=== PATIENT | male | born 1945 | race Two or more races ===

== ENCOUNTER 2021-12-09 21:43 | Inpatient (IN) | payer MEDICARE, MEDICAID ==
[~2021-12-09] VITALS: Ht 165.1 cm; Wt 72.1 kg
[2021-12-09] MEDS ORDERED: SODIUM CHLORIDE 0.9% 1,000 ML IV ONE (22:15)
[2021-12-10 00:43] LABS: CHLORIDE 101 mEq/L (98-107); HEMATOCRIT. 39.6 % (42.0-52.0); HEMOGLOBIN. 12.5 g/dL (14.0-18.0); MEAN CORPUSCULAR HEMOGLOBIN 25.7 pg (28.0-32.0); MEAN CORPUSCULAR VOLUME 81.1 fL (80.0-94.0); MEAN PLATELET VOLUME 9.5 fl (7.4-10.4); PLATELET 252 x1000/uL (130-400); RED BLOOD CELL COUNT 4.88 mill/uL (4.7-6.1); RED CELL DISTRIBUTION WIDTH 17.7 % (11.6-14.6)
[2021-12-10 00:55] LABS: ETHANOL BLOOD < 10 mg/dL
[2021-12-10 01:22] LABS: INR 1.1; PROTHROMBIN TIME 12.2 sec (9.6-11.0)
[2021-12-10 01:33] LABS: PLATELET ESTIMATE NORMAL
[2021-12-10] MEDS ORDERED: SODIUM CHLORIDE 0.9% 1,000 ML IV ONE (02:00)
[2021-12-10] MEDS ORDERED: CEFTRIAXONE 1 G PREMIX 50 ML IV ONE (02:00)
[2021-12-10] MEDS ORDERED: POTASSIUM CHLORIDE 20MEQ TABLET SR PO ONE (02:00)
[2021-12-10] MEDS ORDERED: CLONIDINE 0.1MG TABLET PO PRN (04:30)
[2021-12-10] MEDS ORDERED: MORPHINE SULFATE 2 MG/ML CPJ (NOT FOR IM USE) IV PRN (04:30)
[2021-12-10] MEDS ORDERED: CEFTRIAXONE 1 G PREMIX 50 ML IV SCH (04:30)
[2021-12-10] MEDS ORDERED: MAGNESIUM/ALUMINUM HYDROXIDE/SIMETHICONE 30ML UDC PO PRN (04:30)
[2021-12-10] MEDS ORDERED: DOCUSATE SODIUM 100MG CAPSULE PO PRN (04:30)
[2021-12-10] MEDS ORDERED: ACETAMINOPHEN 325MG TABLET PO PRN (04:30)
[2021-12-10] MEDS ORDERED: IPRATROPIUM/ALBUTEROL 0.5-3(2.5)MG/3ML NEB HHN PRN (04:30)
[2021-12-10] MEDS ORDERED: ACETAMINOPHEN 650MG SUPP PR PRN (04:30)
[2021-12-10] MEDS: SODIUM CHLORIDE 0.9% 1,000 ML IV SCH ×2 (05:07→08:00)
[2021-12-10] MEDS ORDERED: NALOXONE HCL 0.4MG/ML VIAL IV PRN (08:30)
[2021-12-10] MEDS ORDERED: POTASSIUM CHLORIDE 20MEQ TABLET SR PO NR (10:30)
[2021-12-10] MEDS: ENOXAPARIN 40MG/0.4ML SYR SUBCUT SCH (11:01)
[2021-12-10 14:00] VITALS: BP 121/77
[2021-12-10 15:24] VITALS: BP 121/77
[2021-12-10 16:00] VITALS: BP 113/79
[2021-12-10 16:44] LABS: BASOPHILS % 0.4 % (0.0-2.0); EOSINOPHILS % 0.5 % (0.0-5.0); HEMATOCRIT. 38.1 % (42.0-52.0); HEMOGLOBIN. 12.2 g/dL (14.0-18.0); LYMPHOCYTES % 8.3 % (20.0-50.0); MEAN CORPUSCULAR VOLUME 81.1 fL (80.0-94.0); MEAN PLATELET VOLUME 9.9 fl (7.4-10.4); MONOCYTES % 12.1 % (2.0-8.0); NEUTROPHILS % 78.7 % (40.0-76.0); PLATELET 247 x1000/uL (130-400); RED CELL DISTRIBUTION WIDTH 17.6 % (11.6-14.6)
[2021-12-10 17:17] LABS: CHLORIDE 106 mEq/L (98-107)
[2021-12-10 17:32] LABS: CREATINE KINASE 201 IU/L (39-308); HDL CHOLESTEROL 24 mg/dL (40-59); LDL CHOLESTEROL 151 mg/dL (5-100)
[2021-12-10 18:00] VITALS: BP 123/62
[2021-12-10 20:00] VITALS: BP 113/79
[2021-12-10 22:00] VITALS: BP 114/80
[2021-12-11] VITALS (13 sets, daily range): BP systolic 91–128; BP diastolic 62–88
[2021-12-11 01:27] LABS: *AMPHETAMINES SCREEN URINE NEGATIVE (NEGATIVE); *BARBITURATES SCREEN URINE NEGATIVE (NEGATIVE); *BENZODIAZEPINES SCREEN URINE NEGATIVE (NEGATIVE); *COCAINE SCREEN URINE NEGATIVE (NEGATIVE); CANNABINOID URINE SCREEN NEGATIVE (NEGATIVE); METHADONE URINE SCREEN NEGATIVE (NEGATIVE); OPIATES URINE SCREEN NEGATIVE (NEGATIVE); PHENCYCLIDINE URINE SCREEN NEGATIVE (NEGATIVE)
[2021-12-11] MEDS: CEFTRIAXONE 1,000 MG in DEXTROSE 5% WATER 50 ML IV SCH (02:51)
[2021-12-11] MEDS: SODIUM CHLORIDE 0.9% 1,000 ML IV SCH ×2 (04:21→17:29)
[2021-12-11 08:02] LABS: BASOPHILS % 0.5 % (0.0-2.0); EOSINOPHILS % 0.5 % (0.0-5.0); HEMATOCRIT. 33.8 % (42.0-52.0); HEMOGLOBIN. 11.1 g/dL (14.0-18.0); LYMPHOCYTES % 8.2 % (20.0-50.0); MEAN CORPUSCULAR HEMOGLOBIN 26.1 pg (28.0-32.0); MEAN CORPUSCULAR VOLUME 79.5 fL (80.0-94.0); MONOCYTES % 12.5 % (2.0-8.0); NEUTROPHILS % 78.3 % (40.0-76.0); PLATELET 231 x1000/uL (130-400); RED BLOOD CELL COUNT 4.25 mill/uL (4.7-6.1); RED CELL DISTRIBUTION WIDTH 17.8 % (11.6-14.6)
[2021-12-11 08:44] LABS: CHLORIDE 106 mEq/L (98-107)
[2021-12-11 08:52] LABS: HEPATITIS B SURFACE ANTIGEN NEGATIVE
[2021-12-11] MEDS ORDERED: POTASSIUM CHLORIDE 20MEQ TABLET SR PO SCH (09:00)
[2021-12-11] MEDS: ENOXAPARIN 40MG/0.4ML SYR SUBCUT SCH (09:04)
[2021-12-11] MEDS ORDERED: DEXTROSE 50% WATER 50ML SYRINGE IV NR (12:15)
[2021-12-11] MEDS: ATORVASTATIN CALCIUM 20MG TABLET PO SCH (20:20)
[2021-12-11 23:04] LABS: CLARITY URINE CLEAR (CLEAR); COLOR URINE YELLOW (YELLOW); KETONES URINE 1+ (NEGATIVE); LEUKOCYTE ESTERASE URINE NEGATIVE (NEGATIVE); NITRITE URINE NEGATIVE (NEGATIVE); OCCULT BLOOD URINE NEGATIVE (NEGATIVE); PROTEIN URINE TRACE (NEGATIVE); SPECIFIC GRAVITY URINE 1.014 (1.005-1.030); UROBILINOGEN URINE 0.2 E.U./dL (0.2-1.0)
[2021-12-12] VITALS (12 sets, daily range): BP systolic 99–142; BP diastolic 40–90
[2021-12-12] MEDS: CEFTRIAXONE 1,000 MG in DEXTROSE 5% WATER 50 ML IV SCH (02:21)
[2021-12-12] MEDS: SODIUM CHLORIDE 0.9% 1,000 ML IV SCH (02:22)
[2021-12-12 06:52] LABS: HEMATOCRIT. 33.9 % (42.0-52.0); HEMOGLOBIN. 11.2 g/dL (14.0-18.0); MEAN CORPUSCULAR HEMOGLOBIN 26.3 pg (28.0-32.0); MEAN CORPUSCULAR VOLUME 79.8 fL (80.0-94.0); MEAN PLATELET VOLUME 9.6 fl (7.4-10.4); PLATELET 221 x1000/uL (130-400); RED BLOOD CELL COUNT 4.25 mill/uL (4.7-6.1); RED CELL DISTRIBUTION WIDTH 17.7 % (11.6-14.6)
[2021-12-12 07:35] LABS: CHLORIDE 108 mEq/L (98-107)
[2021-12-12] MEDS: MAGNESIUM OXIDE 400MG TABLET PO SCH (08:29)
[2021-12-12] MEDS: DEXT 5%/0.45% NACL 1000ML 1,000 ML IV SCH (08:29)
[2021-12-12] MEDS: ENOXAPARIN 40MG/0.4ML SYR SUBCUT SCH ×2 (08:30→08:40)
[2021-12-12] MEDS ORDERED: POTASSIUM CHLORIDE 20MEQ TABLET SR PO SCH (08:30)
[2021-12-12] MEDS ORDERED: DEXTROSE 50% WATER 50ML SYRINGE IV SCH (09:00)
[2021-12-12 14:01] LABS: PLATELET ESTIMATE NORMAL
[2021-12-12] MEDS: ATORVASTATIN CALCIUM 20MG TABLET PO SCH (21:00)
[2021-12-12] MEDS: SODIUM CHLORIDE 0.45% 1,000 ML IV SCH (23:44)
[2021-12-13] VITALS (16 sets, daily range): BP systolic 103–135; BP diastolic 68–99
[2021-12-13] MEDS: CEFTRIAXONE 1,000 MG in DEXTROSE 5% WATER 50 ML IV SCH (02:01)
[2021-12-13] MEDS ORDERED: BLOOD SUGAR DIAGNOSTIC STRIP TEST SCH (03:00)
[2021-12-13] MEDS ORDERED: DEXTROSE 50% WATER 50ML SYRINGE IV NR ×2 (03:15→18:00)
[2021-12-13] MEDS: DEXT 5%/0.45% NACL 1000ML 1,000 ML IV SCH (05:00)
[2021-12-13] MEDS: MAGNESIUM OXIDE 400MG TABLET PO SCH (08:02)
[2021-12-13] MEDS: ENOXAPARIN 40MG/0.4ML SYR SUBCUT SCH (08:03)
[2021-12-13] MEDS: SODIUM CHLORIDE 0.45% 1,000 ML IV SCH (12:33)
[2021-12-13 12:47] LABS: BASOPHILS % 0.3 % (0.0-2.0); EOSINOPHILS % 0.3 % (0.0-5.0); HEMATOCRIT. 36.5 % (42.0-52.0); HEMOGLOBIN. 11.7 g/dL (14.0-18.0); MEAN CORPUSCULAR HEMOGLOBIN 25.7 pg (28.0-32.0); MEAN CORPUSCULAR VOLUME 80.1 fL (80.0-94.0); MEAN PLATELET VOLUME 8.7 fl (7.4-10.4); NEUTROPHILS % 82.4 % (40.0-76.0); PLATELET 203 x1000/uL (130-400); RED BLOOD CELL COUNT 4.56 mill/uL (4.7-6.1); RED CELL DISTRIBUTION WIDTH 18.4 % (11.6-14.6)
[2021-12-13 13:04] LABS: CHLORIDE 106 mEq/L (98-107)
[2021-12-13 13:14] LABS: T4 FREE 1.28 ng/dL (0.76-1.46)
[2021-12-13] MEDS ORDERED: POTASSIUM CHLORIDE 20MEQ TABLET SR PO NR (13:30)
[2021-12-13] MEDS: ONDANSETRON HCL 4MG/2ML INJ IV PRN (18:05)
[2021-12-13] MEDS ORDERED: DEXTROSE 50% WATER 50ML SYRINGE IV PRN (19:15)
[2021-12-13] MEDS: BLOOD SUGAR DIAGNOSTIC STRIP TEST SCH ×2 (21:01→23:53)
[2021-12-13] MEDS: ATORVASTATIN CALCIUM 20MG TABLET PO SCH (21:15)
[2021-12-14] VITALS (12 sets, daily range): BP systolic 91–143; BP diastolic 62–101
[2021-12-14] MEDS: CEFTRIAXONE 1,000 MG in DEXTROSE 5% WATER 50 ML IV SCH (01:14)
[2021-12-14] MEDS: SODIUM CHLORIDE 0.45% 1,000 ML IV SCH (01:15)
[2021-12-14] MEDS: BLOOD SUGAR DIAGNOSTIC STRIP TEST SCH ×3 (04:19→17:15)
[2021-12-14 06:25] LABS: BASOPHILS % 0.2 % (0.0-2.0); EOSINOPHILS % 0.4 % (0.0-5.0); HEMATOCRIT. 34.3 % (42.0-52.0); HEMOGLOBIN. 11.3 g/dL (14.0-18.0); LYMPHOCYTES % 7.3 % (20.0-50.0); MEAN CORPUSCULAR HEMOGLOBIN 26.3 pg (28.0-32.0); MEAN CORPUSCULAR VOLUME 80.1 fL (80.0-94.0); MEAN PLATELET VOLUME 9.3 fl (7.4-10.4); NEUTROPHILS % 85.1 % (40.0-76.0); PLATELET 218 x1000/uL (130-400); RED BLOOD CELL COUNT 4.28 mill/uL (4.7-6.1); RED CELL DISTRIBUTION WIDTH 18.1 % (11.6-14.6)
[2021-12-14 06:57] LABS: CHLORIDE 108 mEq/L (98-107)
[2021-12-14 07:04] LABS: BETA HYDROXYBUTYRATE 1.2 mMol/L (0.0-0.3); GAMMA GLUTAMYL TRANSPEPTIDASE 145 IU/L (11-50)
[2021-12-14] MEDS: MAGNESIUM OXIDE 400MG TABLET PO SCH (09:00)
[2021-12-14] MEDS: ENOXAPARIN 40MG/0.4ML SYR SUBCUT SCH (09:00)
[2021-12-14] MEDS: GLUCAGON,HUMAN RECOMBINANT 1MG/VIAL IV NR (10:00)
[2021-12-14] MEDS ORDERED: POTASSIUM CHLORIDE 20MEQ TABLET SR PO SCH (11:00)
[2021-12-14] MEDS: DEXT 5%/0.45% NACL 1000ML 1,000 ML IV SCH (13:30)
[2021-12-14] MEDS ORDERED: IOHEXOL-300 100 ML BOTTLE ONE (13:31)
[2021-12-14] MEDS: ACETAMINOPHEN 325MG TABLET PO PRN (20:38)
[2021-12-14] MEDS: ATORVASTATIN CALCIUM 20MG TABLET PO SCH (20:38)
[2021-12-15] VITALS (11 sets, daily range): BP systolic 97–133; BP diastolic 66–95
[2021-12-15] MEDS: CEFTRIAXONE 1,000 MG in DEXTROSE 5% WATER 50 ML IV SCH (02:25)
[2021-12-15] MEDS: DEXT 5%/0.9% NACL KCL 20MEQ/L 1,000 ML IV SCH ×2 (02:25→15:32)
[2021-12-15 08:36] LABS: FOLIC ACID (FOLATE) SERUM 6.2 ng/mL (>5.38)
[2021-12-15] MEDS: BLOOD SUGAR DIAGNOSTIC STRIP TEST SCH ×2 (09:00→17:00)
[2021-12-15 09:06] LABS: C-PEPTIDE 1.2 ng/mL (1.1-4.4)
[2021-12-15] MEDS: ENOXAPARIN 40MG/0.4ML SYR SUBCUT SCH (09:12)
[2021-12-15] MEDS: MAGNESIUM OXIDE 400MG TABLET PO SCH (09:12)
[2021-12-15] MEDS: ONDANSETRON HCL 4MG/2ML INJ IV PRN (09:24)
[2021-12-15] MEDS ORDERED: GADOTERATE MEGLUMINE 5 MMOL/10 ML VIAL IV ONE (18:09)
[2021-12-15] MEDS: ATORVASTATIN CALCIUM 20MG TABLET PO SCH (21:00)
[2021-12-16] VITALS (12 sets, daily range): BP systolic 99–125; BP diastolic 62–87
[2021-12-16 06:29] LABS: HEMATOCRIT. 42.4 % (42.0-52.0); HEMOGLOBIN. 13.6 g/dL (14.0-18.0); MEAN CORPUSCULAR HEMOGLOBIN 25.8 pg (28.0-32.0); MEAN CORPUSCULAR VOLUME 80.9 fL (80.0-94.0); MEAN PLATELET VOLUME 9.2 fl (7.4-10.4); PLATELET 209 x1000/uL (130-400); RED BLOOD CELL COUNT 5.24 mill/uL (4.7-6.1); RED CELL DISTRIBUTION WIDTH 18.8 % (11.6-14.6)
[2021-12-16] MEDS: MAGNESIUM OXIDE 400MG TABLET PO SCH (08:09)
[2021-12-16] MEDS: ENOXAPARIN 40MG/0.4ML SYR SUBCUT SCH (08:24)
[2021-12-16] MEDS: ONDANSETRON HCL 4MG/2ML INJ IV PRN (08:31)
[2021-12-16] MEDS: BLOOD SUGAR DIAGNOSTIC STRIP TEST SCH ×2 (08:31→16:40)
[2021-12-16] MEDS: METOPROLOL TARTRATE 25MG TABLET PO SCH ×2 (10:30→21:00)
[2021-12-16] MEDS: DEXT 5%/0.9% NACL KCL 20MEQ/L 1,000 ML IV SCH (10:55)
[2021-12-16 11:00] LABS: CHLORIDE 108 mEq/L (98-107)
[2021-12-16 11:17] LABS: PHOSPHORUS 2.1 mg/dL (2.5-4.9)
[2021-12-16 13:10] LABS: C-PEPTIDE 1.4 ng/mL (1.1-4.4); INSULIN 2.8 uIU/mL (2.6-24.9)
[2021-12-16] MEDS ORDERED: FUROSEMIDE 40MG/4ML VIAL IVP NR (14:45)
[2021-12-16] MEDS: PIPERACILLIN/TAZOBACTAM 3.375 G in DEXTROSE 5% WATER 50 ML IV SCH ×2 (16:29→22:45)
[2021-12-16 18:19] LABS: PLATELET ESTIMATE NORMAL
[2021-12-16] MEDS: ATORVASTATIN CALCIUM 20MG TABLET PO SCH (21:00)
[2021-12-16] MEDS: GUAIFENESIN 600MG ER TABLET PO SCH (21:00)
[2021-12-16] MEDS ORDERED: POTASSIUM PHOS,M-BASIC-D-BASIC 10 MMOL in DEXT 5% WATER 246.6667 ML IV NR (22:00)
[2021-12-17] MEDS: DEXT 5%/0.9% NACL KCL 20MEQ/L 1,000 ML IV SCH ×2 (01:14→17:27)
[2021-12-17] MEDS: PIPERACILLIN/TAZOBACTAM 3.375 G in DEXTROSE 5% WATER 50 ML IV SCH ×3 (05:22→21:53)
[2021-12-17 06:43] LABS: HEMATOCRIT. 32.2 % (42.0-52.0); HEMOGLOBIN. 10.9 g/dL (14.0-18.0); MEAN CORPUSCULAR HEMOGLOBIN 26.9 pg (28.0-32.0); MEAN CORPUSCULAR VOLUME 79.5 fL (80.0-94.0); MEAN PLATELET VOLUME 9.2 fl (7.4-10.4); PLATELET 160 x1000/uL (130-400); RED BLOOD CELL COUNT 4.04 mill/uL (4.7-6.1); RED CELL DISTRIBUTION WIDTH 18.3 % (11.6-14.6)
[2021-12-17 07:13] LABS: CHLORIDE 108 mEq/L (98-107); PHOSPHORUS 2.5 mg/dL (2.5-4.9)
[2021-12-17 08:00] VITALS: BP 104/72
[2021-12-17] MEDS: ENOXAPARIN 40MG/0.4ML SYR SUBCUT SCH (09:00)
[2021-12-17] MEDS: GUAIFENESIN 600MG ER TABLET PO SCH ×2 (09:00→21:54)
[2021-12-17] MEDS: METOPROLOL TARTRATE 25MG TABLET PO SCH ×2 (09:00→21:52)
[2021-12-17] MEDS: MAGNESIUM OXIDE 400MG TABLET PO SCH (09:00)
[2021-12-17] MEDS: BLOOD SUGAR DIAGNOSTIC STRIP TEST SCH ×2 (09:37→17:32)
[2021-12-17] MEDS ORDERED: MAGNESIUM 1 G PREMIX 100 ML IV NR (10:30)
[2021-12-17 12:00] VITALS: BP 100/72
[2021-12-17 13:07] LABS: PRO INSULIN 1.6 pmol/L (0.0-10.0)
[2021-12-17 13:07] LABS: PRO INSULIN 3.3 pmol/L (0.0-10.0)
[2021-12-17 16:00] VITALS: BP 116/79
[2021-12-17 17:37] LABS: PLATELET ESTIMATE NORMAL
[2021-12-17 20:00] VITALS: BP 119/82
[2021-12-17] MEDS: ATORVASTATIN CALCIUM 20MG TABLET PO SCH (21:51)
[2021-12-18] VITALS: BP 121/89
[2021-12-18 04:00] VITALS: BP 123/78
[2021-12-18] MEDS: PIPERACILLIN/TAZOBACTAM 3.375 G in DEXTROSE 5% WATER 50 ML IV SCH ×3 (05:20→21:51)
[2021-12-18 08:01] VITALS: BP 107/70
[2021-12-18] MEDS: ENOXAPARIN 40MG/0.4ML SYR SUBCUT SCH (09:00)
[2021-12-18] MEDS: BLOOD SUGAR DIAGNOSTIC STRIP TEST SCH ×2 (09:00→17:48)
[2021-12-18] MEDS: METOPROLOL TARTRATE 25MG TABLET PO SCH ×3 (09:00→21:49)
[2021-12-18] MEDS: GUAIFENESIN 600MG ER TABLET PO SCH ×3 (09:00→21:52)
[2021-12-18] MEDS: MAGNESIUM OXIDE 400MG TABLET PO SCH (09:00)
[2021-12-18] MEDS: DEXT 5%/0.9% NACL KCL 20MEQ/L 1,000 ML IV SCH (10:23)
[2021-12-18] MEDS: PANTOPRAZOLE SODIUM 40 MG/VIAL IV SCH ×2 (11:00→21:48)
[2021-12-18 12:00] VITALS: BP 112/64
[2021-12-18] MEDS ORDERED: HALOPERIDOL 5MG TABLET PO PRN (12:45)
[2021-12-18 16:00] VITALS: BP 132/75
[2021-12-18 18:12] LABS: BASOPHILS % 0.7 % (0.0-2.0); EOSINOPHILS % 0.2 % (0.0-5.0); HEMATOCRIT. 31.4 % (42.0-52.0); HEMOGLOBIN. 10.3 g/dL (14.0-18.0); LYMPHOCYTES % 7.6 % (20.0-50.0); MEAN CORPUSCULAR HEMOGLOBIN 26.4 pg (28.0-32.0); MEAN CORPUSCULAR VOLUME 80.5 fL (80.0-94.0); MEAN PLATELET VOLUME 9.1 fl (7.4-10.4); MONOCYTES % 10.5 % (2.0-8.0); PLATELET 152 x1000/uL (130-400); RED CELL DISTRIBUTION WIDTH 17.9 % (11.6-14.6)
[2021-12-18] MEDS: DEXTROSE 10% WATER 500 ML IV SCH (18:40)
[2021-12-18 20:00] VITALS: BP 119/85
[2021-12-18] MEDS: ATORVASTATIN CALCIUM 20MG TABLET PO SCH ×2 (21:00→21:51)
[2021-12-19] VITALS: BP 125/73
[2021-12-19 04:00] VITALS: BP 130/87
[2021-12-19] MEDS: PIPERACILLIN/TAZOBACTAM 3.375 G in DEXTROSE 5% WATER 50 ML IV SCH ×3 (06:17→22:32)
[2021-12-19] MEDS: DEXTROSE 10% WATER 500 ML IV SCH (06:17)
[2021-12-19 08:00] VITALS: BP 115/75
[2021-12-19] MEDS: GUAIFENESIN 600MG ER TABLET PO SCH ×2 (09:00→22:32)
[2021-12-19] MEDS: METOPROLOL TARTRATE 25MG TABLET PO SCH ×2 (09:00→22:33)
[2021-12-19] MEDS: PANTOPRAZOLE SODIUM 40 MG/VIAL IV SCH ×2 (09:00→22:32)
[2021-12-19] MEDS: MAGNESIUM OXIDE 400MG TABLET PO SCH (09:00)
[2021-12-19] MEDS: ENOXAPARIN 40MG/0.4ML SYR SUBCUT SCH (09:00)
[2021-12-19] MEDS: BLOOD SUGAR DIAGNOSTIC STRIP TEST SCH ×2 (09:00→17:00)
[2021-12-19 09:58] LABS: CHLORIDE 107 mEq/L (98-107)
[2021-12-19 10:00] LABS: BASOPHILS % 0.5 % (0.0-2.0); EOSINOPHILS % 0.2 % (0.0-5.0); HEMATOCRIT. 31.5 % (42.0-52.0); HEMOGLOBIN. 10.5 g/dL (14.0-18.0); INR 1.2; LYMPHOCYTES % 11.4 % (20.0-50.0); MEAN CORPUSCULAR HEMOGLOBIN 26.7 pg (28.0-32.0); MEAN CORPUSCULAR VOLUME 80.1 fL (80.0-94.0); MEAN PLATELET VOLUME 8.7 fl (7.4-10.4); MONOCYTES % 10.2 % (2.0-8.0); NEUTROPHILS % 77.7 % (40.0-76.0); PLATELET 160 x1000/uL (130-400); PROTHROMBIN TIME 12.8 sec (9.6-11.0); RED BLOOD CELL COUNT 3.93 mill/uL (4.7-6.1); RED CELL DISTRIBUTION WIDTH 18.6 % (11.6-14.6)
[2021-12-19 12:00] VITALS: BP 118/80
[2021-12-19] MEDS ORDERED: POTASSIUM CHLORIDE INJ 40 MEQ in DEXT 5% WATER 250 ML IV NR ×2 (13:00→15:00)
[2021-12-19 13:09] LABS: PRO INSULIN 2.1 pmol/L (0.0-10.0)
[2021-12-19] MEDS ORDERED: DEXTROSE 50% WATER 50ML SYRINGE IV SCH (14:30)
[2021-12-19 16:00] VITALS: BP 97/73
[2021-12-19] MEDS: ATORVASTATIN CALCIUM 20MG TABLET PO SCH (22:32)
[2021-12-19] MEDS: FAT EMULSIONS 500 ML IV SCH (22:34)
[2021-12-19] MEDS: TOTAL PARENTERAL NUTRITION 1,800 ML IV SCH (22:36)
[2021-12-20] VITALS: BP 114/79
[2021-12-20 04:00] VITALS: BP 106/71
[2021-12-20] MEDS: PIPERACILLIN/TAZOBACTAM 3.375 G in DEXTROSE 5% WATER 50 ML IV SCH ×3 (05:49→22:49)
[2021-12-20 08:00] VITALS: BP 108/78
[2021-12-20] MEDS: MAGNESIUM OXIDE 400MG TABLET PO SCH (09:00)
[2021-12-20] MEDS: PANTOPRAZOLE SODIUM 40 MG/VIAL IV SCH ×2 (09:00→21:39)
[2021-12-20] MEDS: GUAIFENESIN 600MG ER TABLET PO SCH ×2 (09:00→21:39)
[2021-12-20] MEDS: BLOOD SUGAR DIAGNOSTIC STRIP TEST SCH ×2 (09:00→17:00)
[2021-12-20] MEDS: ENOXAPARIN 40MG/0.4ML SYR SUBCUT SCH (09:00)
[2021-12-20] MEDS: METOPROLOL TARTRATE 25MG TABLET PO SCH ×2 (09:00→21:00)
[2021-12-20 10:06] LABS: INSULIN 2.8 uIU/mL (2.6-24.9)
[2021-12-20 10:58] LABS: BASOPHILS % 0.8 % (0.0-2.0); EOSINOPHILS % 1.4 % (0.0-5.0); HEMATOCRIT. 32.1 % (42.0-52.0); HEMOGLOBIN. 10.8 g/dL (14.0-18.0); LYMPHOCYTES % 14.9 % (20.0-50.0); MEAN CORPUSCULAR HEMOGLOBIN 26.9 pg (28.0-32.0); MEAN CORPUSCULAR VOLUME 79.8 fL (80.0-94.0); MEAN PLATELET VOLUME 8.6 fl (7.4-10.4); NEUTROPHILS % 73.9 % (40.0-76.0); PLATELET 147 x1000/uL (130-400); RED BLOOD CELL COUNT 4.02 mill/uL (4.7-6.1); RED CELL DISTRIBUTION WIDTH 17.8 % (11.6-14.6)
[2021-12-20 11:33] LABS: CHLORIDE 106 mEq/L (98-107); PHOSPHORUS 1.6 mg/dL (2.5-4.9)
[2021-12-20 12:00] VITALS: BP 109/79
[2021-12-20] MEDS ORDERED: WATER IV ONE (14:00)
[2021-12-20] MEDS ORDERED: DEXT 5% IV ONE (14:00)
[2021-12-20] MEDS ORDERED: POTASSIUM PHOS M BASIC D BASIC IV ONE (14:00)
[2021-12-20] MEDS ORDERED: NALOXONE HCL 0.4MG/ML VIAL IV PRN (14:15)
[2021-12-20] MEDS: MORPHINE SULFATE 2 MG/ML CPJ (NOT FOR IM USE) IV PRN (14:34)
[2021-12-20 16:00] VITALS: BP 120/84
[2021-12-20 20:00] VITALS: BP 99/74
[2021-12-20] MEDS: ATORVASTATIN CALCIUM 20MG TABLET PO SCH (21:39)
[2021-12-21] VITALS: BP 90/70
[2021-12-21] MEDS: PIPERACILLIN/TAZOBACTAM 3.375 G in DEXTROSE 5% WATER 50 ML IV SCH (05:21)
[2021-12-21] MEDS: TOTAL PARENTERAL NUTRITION 1,800 ML IV SCH (05:27)
[2021-12-21 06:42] LABS: BASOPHILS % 0.3 % (0.0-2.0); EOSINOPHILS % 0.5 % (0.0-5.0); HEMATOCRIT. 32.1 % (42.0-52.0); HEMOGLOBIN. 10.8 g/dL (14.0-18.0); LYMPHOCYTES % 15.8 % (20.0-50.0); MEAN CORPUSCULAR HEMOGLOBIN 26.8 pg (28.0-32.0); MEAN CORPUSCULAR VOLUME 79.4 fL (80.0-94.0); MEAN PLATELET VOLUME 8.9 fl (7.4-10.4); MONOCYTES % 10.4 % (2.0-8.0); PLATELET 155 x1000/uL (130-400); RED BLOOD CELL COUNT 4.04 mill/uL (4.7-6.1); RED CELL DISTRIBUTION WIDTH 17.8 % (11.6-14.6)
[2021-12-21 06:55] LABS: CHLORIDE 103 mEq/L (98-107)
[2021-12-21 07:05] LABS: PHOSPHORUS 1.7 mg/dL (2.5-4.9)
[2021-12-21 08:00] VITALS: BP 99/71
[2021-12-21] MEDS: PANTOPRAZOLE SODIUM 40 MG/VIAL IV SCH ×2 (09:00→20:38)
[2021-12-21] MEDS: BLOOD SUGAR DIAGNOSTIC STRIP TEST SCH ×2 (09:00→20:50)
[2021-12-21] MEDS: GUAIFENESIN 600MG ER TABLET PO SCH ×3 (09:00→20:41)
[2021-12-21] MEDS: MAGNESIUM OXIDE 400MG TABLET PO SCH (09:00)
[2021-12-21] MEDS: ENOXAPARIN 40MG/0.4ML SYR SUBCUT SCH (09:00)
[2021-12-21] MEDS: METOPROLOL TARTRATE 25MG TABLET PO SCH ×2 (09:00→21:00)
[2021-12-21 12:00] VITALS: BP 105/76
[2021-12-21] MEDS ORDERED: POTASSIUM PHOS,M-BASIC-D-BASIC 30 MMOL in SODIUM CHLORIDE 0.9% 500 ML IV SCH (12:00)
[2021-12-21 16:00] VITALS: BP 102/79
[2021-12-21] MEDS: MORPHINE SULFATE 2 MG/ML CPJ (NOT FOR IM USE) IV PRN (16:20)
[2021-12-21 20:00] VITALS: BP 114/83
[2021-12-21] MEDS: ATORVASTATIN CALCIUM 20MG TABLET PO SCH ×2 (20:40→20:41)
[2021-12-21] MEDS ORDERED: PIPERACILLIN/TAZOBACTAM 3.375 G in DEXTROSE 5% WATER 50 ML IV NR (21:00)
[2021-12-22] VITALS: BP 116/85
[2021-12-22 04:00] VITALS: BP 110/81
[2021-12-22 05:23] LABS: HEMATOCRIT. 29.8 % (42.0-52.0); LYMPHOCYTES % 14.5 % (20.0-50.0); MEAN CORPUSCULAR HEMOGLOBIN 26.6 pg (28.0-32.0); MEAN CORPUSCULAR VOLUME 79.3 fL (80.0-94.0); MEAN PLATELET VOLUME 9.1 fl (7.4-10.4); MONOCYTES % 10.4 % (2.0-8.0); NEUTROPHILS % 73.1 % (40.0-76.0); PLATELET 169 x1000/uL (130-400); RED BLOOD CELL COUNT 3.76 mill/uL (4.7-6.1); RED CELL DISTRIBUTION WIDTH 17.6 % (11.6-14.6)
[2021-12-22 05:35] LABS: CHLORIDE 106 mEq/L (98-107)
[2021-12-22 05:40] LABS: PHOSPHORUS 1.6 mg/dL (2.5-4.9)
[2021-12-22] MEDS: TOTAL PARENTERAL NUTRITION 2,000 ML IV SCH (06:57)
[2021-12-22 08:00] VITALS: BP 108/82
[2021-12-22] MEDS: ENOXAPARIN 40MG/0.4ML SYR SUBCUT SCH (08:01)
[2021-12-22] MEDS: METOPROLOL TARTRATE 25MG TABLET PO SCH ×2 (09:00→21:00)
[2021-12-22] MEDS: BLOOD SUGAR DIAGNOSTIC STRIP TEST SCH ×2 (09:09→16:59)
[2021-12-22] MEDS: MAGNESIUM OXIDE 400MG TABLET PO SCH (09:21)
[2021-12-22] MEDS: PANTOPRAZOLE SODIUM 40 MG/VIAL IV SCH ×2 (09:21→21:00)
[2021-12-22] MEDS: GUAIFENESIN 600MG ER TABLET PO SCH ×2 (09:22→21:00)
[2021-12-22] MEDS: POTASSIUM CHLORIDE 20MEQ/PACKET PO NR ×2 (11:50→12:00)
[2021-12-22 12:00] VITALS: BP 113/84
[2021-12-22] MEDS ORDERED: MAGNESIUM 2 G PREMIX 50 ML IV NR (12:00)
[2021-12-22] MEDS ORDERED: POTASSIUM PHOS,M-BASIC-D-BASIC 20 MMOL in SODIUM CHLORIDE 0.9% 250 ML IV NR (13:00)
[2021-12-22 16:00] VITALS: BP 112/85
[2021-12-22 20:00] VITALS: BP 105/72
[2021-12-22] MEDS: FAT EMULSIONS 500 ML IV SCH (20:32)
[2021-12-22] MEDS: ATORVASTATIN CALCIUM 20MG TABLET PO SCH (21:00)
[2021-12-22] MEDS: MIRTAZAPINE 15MG TABLET PO SCH (21:00)
[2021-12-23] VITALS: BP 118/85
[2021-12-23 04:00] VITALS: BP 103/68
[2021-12-23 06:30] LABS: BASOPHILS % 0.7 % (0.0-2.0); EOSINOPHILS % 0.9 % (0.0-5.0); HEMATOCRIT. 28.2 % (42.0-52.0); HEMOGLOBIN. 9.9 g/dL (14.0-18.0); LYMPHOCYTES % 15.4 % (20.0-50.0); MEAN CORPUSCULAR VOLUME 79.6 fL (80.0-94.0); MEAN PLATELET VOLUME 9.3 fl (7.4-10.4); MONOCYTES % 10.1 % (2.0-8.0); NEUTROPHILS % 72.9 % (40.0-76.0); PLATELET 175 x1000/uL (130-400); RED BLOOD CELL COUNT 3.54 mill/uL (4.7-6.1); RED CELL DISTRIBUTION WIDTH 17.9 % (11.6-14.6)
[2021-12-23 06:45] LABS: CHLORIDE 102 mEq/L (98-107)
[2021-12-23 06:51] LABS: PHOSPHORUS 1.3 mg/dL (2.5-4.9)
[2021-12-23 08:00] VITALS: BP 113/79
[2021-12-23] MEDS: GUAIFENESIN 600MG ER TABLET PO SCH ×3 (09:00→21:00)
[2021-12-23] MEDS: METOPROLOL TARTRATE 25MG TABLET PO SCH ×2 (09:00→21:00)
[2021-12-23] MEDS: ENOXAPARIN 40MG/0.4ML SYR SUBCUT SCH (09:00)
[2021-12-23] MEDS: BLOOD SUGAR DIAGNOSTIC STRIP TEST SCH ×2 (09:00→16:26)
[2021-12-23] MEDS: PANTOPRAZOLE SODIUM 40 MG/VIAL IV SCH ×2 (09:33→21:00)
[2021-12-23] MEDS: MAGNESIUM OXIDE 400MG TABLET PO SCH (09:33)
[2021-12-23] MEDS ORDERED: POTASSIUM PHOS,M-BASIC-D-BASIC 20 MMOL in DEXT 5% WATER 243.3333 ML IV ONE (10:00)
[2021-12-23 12:00] VITALS: BP 112/78
[2021-12-23] MEDS ORDERED: DEXTROSE 5% IV ONE (14:00)
[2021-12-23] MEDS ORDERED: POTASSIUM PHOS M BASIC D BASIC IV ONE (14:00)
[2021-12-23] MEDS ORDERED: WATER IV ONE (14:00)
[2021-12-23 15:09] LABS: INSULIN AUTOANTIBODIES < 5.0 uU/mL (.)
[2021-12-23 16:00] VITALS: BP 109/73
[2021-12-23 20:00] VITALS: BP 116/72
[2021-12-23] MEDS: MIRTAZAPINE 15MG TABLET PO SCH (21:00)
[2021-12-23] MEDS: ATORVASTATIN CALCIUM 20MG TABLET PO SCH (21:00)
[2021-12-23] MEDS: TOTAL PARENTERAL NUTRITION 2,000 ML IV SCH (21:10)
[2021-12-24] VITALS: BP_SYST 11; BP_SYST 111; BP_DIAS 69
[2021-12-24 04:00] VITALS: BP 115/68
[2021-12-24 06:33] LABS: BASOPHILS % 1.1 % (0.0-2.0); EOSINOPHILS % 1.6 % (0.0-5.0); HEMATOCRIT. 30.7 % (42.0-52.0); HEMOGLOBIN. 10.1 g/dL (14.0-18.0); LYMPHOCYTES % 11.9 % (20.0-50.0); MEAN CORPUSCULAR HEMOGLOBIN 26.3 pg (28.0-32.0); MEAN PLATELET VOLUME 9.4 fl (7.4-10.4); MONOCYTES % 13.5 % (2.0-8.0); NEUTROPHILS % 71.9 % (40.0-76.0); PLATELET 205 x1000/uL (130-400); RED BLOOD CELL COUNT 3.84 mill/uL (4.7-6.1); RED CELL DISTRIBUTION WIDTH 17.9 % (11.6-14.6)
[2021-12-24 07:59] LABS: CHLORIDE 99 mEq/L (98-107)
[2021-12-24 08:00] VITALS: BP 99/72
[2021-12-24 08:10] LABS: PHOSPHORUS 2.8 mg/dL (2.5-4.9)
[2021-12-24] MEDS: MAGNESIUM OXIDE 400MG TABLET PO SCH (08:20)
[2021-12-24] MEDS: GUAIFENESIN 600MG ER TABLET PO SCH ×2 (08:20→21:00)
[2021-12-24] MEDS: FAMOTIDINE 20MG/2ML VIAL IV SCH ×2 (08:20→21:00)
[2021-12-24] MEDS: METOPROLOL TARTRATE 25MG TABLET PO SCH ×2 (08:20→21:00)
[2021-12-24] MEDS: ENOXAPARIN 40MG/0.4ML SYR SUBCUT SCH (08:21)
[2021-12-24] MEDS: BLOOD SUGAR DIAGNOSTIC STRIP TEST SCH ×2 (08:21→16:58)
[2021-12-24 12:00] VITALS: BP 110/84
[2021-12-24 16:00] VITALS: BP 90/71
[2021-12-24 20:00] VITALS: BP 104/69
[2021-12-24] MEDS: ATORVASTATIN CALCIUM 20MG TABLET PO SCH (21:00)
[2021-12-24] MEDS: MIRTAZAPINE 15MG TABLET PO SCH (21:00)
[2021-12-24] MEDS: FAT EMULSIONS 500 ML IV SCH (21:13)
[2021-12-24] MEDS: TOTAL PARENTERAL NUTRITION 2,000 ML IV SCH (22:14)
[2021-12-25] VITALS: BP 105/78
[2021-12-25 04:00] VITALS: BP 93/72
[2021-12-25 07:42] LABS: BASOPHILS % 0.5 % (0.0-2.0); EOSINOPHILS % 0.1 % (0.0-5.0); HEMATOCRIT. 35.3 % (42.0-52.0); HEMOGLOBIN. 11.4 g/dL (14.0-18.0); LYMPHOCYTES % 9.6 % (20.0-50.0); MEAN CORPUSCULAR HEMOGLOBIN 26.3 pg (28.0-32.0); MEAN CORPUSCULAR VOLUME 81.2 fL (80.0-94.0); MEAN PLATELET VOLUME 8.8 fl (7.4-10.4); MONOCYTES % 9.1 % (2.0-8.0); NEUTROPHILS % 80.7 % (40.0-76.0); PLATELET 197 x1000/uL (130-400); RED BLOOD CELL COUNT 4.35 mill/uL (4.7-6.1); RED CELL DISTRIBUTION WIDTH 18.4 % (11.6-14.6)
[2021-12-25 08:00] VITALS: BP 109/81
[2021-12-25 08:17] LABS: CHLORIDE 96 mEq/L (98-107)
[2021-12-25 08:22] LABS: PHOSPHORUS 1.6 mg/dL (2.5-4.9)
[2021-12-25] MEDS: ACETAMINOPHEN 650MG SUPP PR PRN (08:24)
[2021-12-25] MEDS: FAMOTIDINE 20MG/2ML VIAL IV SCH ×2 (08:24→21:00)
[2021-12-25] MEDS: ONDANSETRON HCL 4MG/2ML INJ IV PRN ×2 (08:31→16:14)
[2021-12-25] MEDS: BLOOD SUGAR DIAGNOSTIC STRIP TEST SCH ×2 (09:00→16:20)
[2021-12-25] MEDS: ENOXAPARIN 40MG/0.4ML SYR SUBCUT SCH (09:00)
[2021-12-25] MEDS: GUAIFENESIN 600MG ER TABLET PO SCH ×2 (09:00→21:00)
[2021-12-25] MEDS: MAGNESIUM OXIDE 400MG TABLET PO SCH (09:00)
[2021-12-25] MEDS: METOPROLOL TARTRATE 25MG TABLET PO SCH ×2 (09:00→21:00)
[2021-12-25 12:00] VITALS: BP 95/71
[2021-12-25 16:00] VITALS: BP 92/62
[2021-12-25] MEDS ORDERED: SODIUM PHOS,M-BASIC-D-BASIC 30 MM in DEXT 5% WATER 500 ML IV SCH (18:00)
[2021-12-25 20:00] VITALS: BP 99/76
[2021-12-25] MEDS: ATORVASTATIN CALCIUM 20MG TABLET PO SCH (21:00)
[2021-12-25] MEDS: MIRTAZAPINE 15MG TABLET PO SCH (21:00)
[2021-12-25] MEDS: TOTAL PARENTERAL NUTRITION 2,000 ML IV SCH (21:24)
[2021-12-25] MEDS: PIPERACILLIN/TAZOBACTAM 3.375 G in DEXTROSE 5% WATER 50 ML IV SCH (21:24)
[2021-12-26] VITALS: BP 105/71
[2021-12-26] MEDS ORDERED: MORPHINE SULFATE 2 MG/ML CPJ (NOT FOR IM USE) IV PRN (03:30)
[2021-12-26] MEDS ORDERED: NALOXONE HCL 0.4MG/ML VIAL IV PRN (03:30)
[2021-12-26] MEDS: ACETAMINOPHEN 325MG TABLET PO PRN (03:37)
[2021-12-26 04:00] VITALS: BP 97/75
[2021-12-26] MEDS: PIPERACILLIN/TAZOBACTAM 3.375 G in DEXTROSE 5% WATER 50 ML IV SCH ×3 (06:27→22:00)
[2021-12-26] MEDS: BLOOD SUGAR DIAGNOSTIC STRIP TEST SCH ×2 (09:00→17:00)
[2021-12-26] MEDS: ENOXAPARIN 40MG/0.4ML SYR SUBCUT SCH (09:00)
[2021-12-26] MEDS: METOPROLOL TARTRATE 25MG TABLET PO SCH (09:00)
[2021-12-26] MEDS: GUAIFENESIN 600MG ER TABLET PO SCH ×2 (09:00→21:00)
[2021-12-26] MEDS: FAMOTIDINE 20MG/2ML VIAL IV SCH ×2 (09:00→21:00)
[2021-12-26] MEDS: MAGNESIUM OXIDE 400MG TABLET PO SCH (09:00)
[2021-12-26 12:00] VITALS: BP 94/65
[2021-12-26] MEDS: METOPROLOL TARTRATE 5MG/5ML VIAL IV SCH ×2 (12:00→17:16)
[2021-12-26 16:00] VITALS: BP 93/67
[2021-12-26 17:03] LABS: HEMATOCRIT. 31.5 % (42.0-52.0); HEMOGLOBIN. 10.5 g/dL (14.0-18.0); MEAN CORPUSCULAR HEMOGLOBIN 26.5 pg (28.0-32.0); MEAN CORPUSCULAR VOLUME 79.9 fL (80.0-94.0); MEAN PLATELET VOLUME 9.5 fl (7.4-10.4); PLATELET 271 x1000/uL (130-400); RED BLOOD CELL COUNT 3.94 mill/uL (4.7-6.1); RED CELL DISTRIBUTION WIDTH 17.3 % (11.6-14.6)
[2021-12-26 17:17] LABS: CHLORIDE 93 mEq/L (98-107)
[2021-12-26 17:31] LABS: PHOSPHORUS 3.1 mg/dL (2.5-4.9)
[2021-12-26 20:00] VITALS: BP 99/71
[2021-12-26 20:56] LABS: PLATELET ESTIMATE NORMAL
[2021-12-26] MEDS: MIRTAZAPINE 15MG TABLET PO SCH (21:00)
[2021-12-26] MEDS: ATORVASTATIN CALCIUM 20MG TABLET PO SCH (21:00)
[2021-12-26] MEDS: FAT EMULSIONS 500 ML IV SCH (21:17)
[2021-12-26] MEDS: TOTAL PARENTERAL NUTRITION 2,000 ML IV SCH (21:22)
[2021-12-26 23:46] VITALS: BP 99/72
[2021-12-27 04:00] VITALS: BP 96/77
[2021-12-27] MEDS: PIPERACILLIN/TAZOBACTAM 3.375 G in DEXTROSE 5% WATER 50 ML IV SCH ×3 (05:45→22:00)
[2021-12-27] MEDS: METOPROLOL TARTRATE 5MG/5ML VIAL IV SCH ×5 (05:45→23:56)
[2021-12-27 08:00] VITALS: BP 105/77
[2021-12-27] MEDS: ENOXAPARIN 40MG/0.4ML SYR SUBCUT SCH (09:35)
[2021-12-27] MEDS: MAGNESIUM OXIDE 400MG TABLET PO SCH (09:36)
[2021-12-27] MEDS: ACETAMINOPHEN 325MG TABLET PO PRN (09:36)
[2021-12-27] MEDS: FAMOTIDINE 20MG/2ML VIAL IV SCH ×2 (09:36→21:00)
[2021-12-27] MEDS: GUAIFENESIN 600MG ER TABLET PO SCH ×2 (09:38→21:00)
[2021-12-27] MEDS: BLOOD SUGAR DIAGNOSTIC STRIP TEST SCH ×2 (09:38→17:15)
[2021-12-27 12:00] VITALS: BP 98/71
[2021-12-27] MEDS ORDERED: TOTAL PARENTERAL NUTRITION 2,000 ML IV SCH ×2 (12:00→21:00)
[2021-12-27 16:00] VITALS: BP 95/65
[2021-12-27 20:00] VITALS: BP 101/75
[2021-12-27] MEDS: ATORVASTATIN CALCIUM 20MG TABLET PO SCH (21:00)
[2021-12-27] MEDS: MIRTAZAPINE 15MG TABLET PO SCH (21:00)
[2021-12-28] VITALS: BP 100/82
[2021-12-28 04:00] VITALS: BP 103/88
[2021-12-28] MEDS: PIPERACILLIN/TAZOBACTAM 3.375 G in DEXTROSE 5% WATER 50 ML IV SCH ×3 (05:36→20:52)
[2021-12-28] MEDS: METOPROLOL TARTRATE 5MG/5ML VIAL IV SCH ×3 (05:42→17:47)
[2021-12-28 07:54] LABS: HEMATOCRIT. 30.6 % (42.0-52.0); MEAN CORPUSCULAR HEMOGLOBIN 26.4 pg (28.0-32.0); MEAN CORPUSCULAR VOLUME 80.9 fL (80.0-94.0); RED BLOOD CELL COUNT 3.79 mill/uL (4.7-6.1); RED CELL DISTRIBUTION WIDTH 17.6 % (11.6-14.6)
[2021-12-28 08:00] VITALS: BP 95/78
[2021-12-28 08:33] LABS: CHLORIDE 95 mEq/L (98-107)
[2021-12-28 08:39] LABS: PHOSPHORUS 1.5 mg/dL (2.5-4.9)
[2021-12-28] MEDS: FAMOTIDINE 20MG/2ML VIAL IV SCH ×2 (09:00→20:53)
[2021-12-28] MEDS: BLOOD SUGAR DIAGNOSTIC STRIP TEST SCH ×2 (09:00→16:53)
[2021-12-28] MEDS: MAGNESIUM OXIDE 400MG TABLET PO SCH (09:00)
[2021-12-28] MEDS: GUAIFENESIN 600MG ER TABLET PO SCH ×3 (09:00→21:43)
[2021-12-28] MEDS: ENOXAPARIN 40MG/0.4ML SYR SUBCUT SCH (09:00)
[2021-12-28 10:54] LABS: PLATELET ESTIMATE NORMAL
[2021-12-28 10:56] LABS: MEAN PLATELET VOLUME 9.2 fl (7.4-10.4); PLATELET 306 x1000/uL (130-400)
[2021-12-28 12:00] VITALS: BP 112/87
[2021-12-28] MEDS ORDERED: SODIUM PHOS M BASIC D BASIC IV NR (14:00)
[2021-12-28] MEDS ORDERED: WATER IV NR (14:00)
[2021-12-28] MEDS ORDERED: DEXTROSE IV NR (14:00)
[2021-12-28 16:00] VITALS: BP 117/89
[2021-12-28] MEDS: ATORVASTATIN CALCIUM 20MG TABLET PO SCH ×2 (20:53→21:44)
[2021-12-28] MEDS: MIRTAZAPINE 15MG TABLET PO SCH ×2 (20:53→21:44)
[2021-12-28 21:00] VITALS: BP 121/106
[2021-12-28] MEDS: TOTAL PARENTERAL NUTRITION 2,000 ML IV SCH (21:03)
[2021-12-28] MEDS ORDERED: LABETALOL 5MG/ML SYR 20 MG/4 ML SYRINGE IV NR (22:07)
[2021-12-29] VITALS: BP 121/92
[2021-12-29] MEDS: METOPROLOL TARTRATE 5MG/5ML VIAL IV SCH ×4 (00:41→18:13)
[2021-12-29 04:00] VITALS: BP 150/71
[2021-12-29] MEDS: PIPERACILLIN/TAZOBACTAM 3.375 G in DEXTROSE 5% WATER 50 ML IV SCH ×3 (06:54→21:33)
[2021-12-29 08:00] VITALS: BP 113/87
[2021-12-29] MEDS: BLOOD SUGAR DIAGNOSTIC STRIP TEST SCH ×2 (09:07→16:17)
[2021-12-29] MEDS: ENOXAPARIN 40MG/0.4ML SYR SUBCUT SCH (09:20)
[2021-12-29] MEDS: MAGNESIUM OXIDE 400MG TABLET PO SCH (09:20)
[2021-12-29] MEDS: FAMOTIDINE 20MG/2ML VIAL IV SCH ×2 (09:20→21:00)
[2021-12-29 09:44] LABS: HEMATOCRIT. 34.5 % (42.0-52.0); HEMOGLOBIN. 11.1 g/dL (14.0-18.0); MEAN CORPUSCULAR HEMOGLOBIN 26.2 pg (28.0-32.0); MEAN CORPUSCULAR VOLUME 81.6 fL (80.0-94.0); MEAN PLATELET VOLUME 9.4 fl (7.4-10.4); PLATELET 400 x1000/uL (130-400); RED BLOOD CELL COUNT 4.23 mill/uL (4.7-6.1); RED CELL DISTRIBUTION WIDTH 17.8 % (11.6-14.6)
[2021-12-29 10:49] LABS: PLATELET ESTIMATE NN
[2021-12-29 11:00] LABS: INR 1.1; PROTHROMBIN TIME 12.2 sec (9.6-11.0)
[2021-12-29 12:00] VITALS: BP 111/84
[2021-12-29 12:46] LABS: CHLORIDE 98 mEq/L (98-107)
[2021-12-29 12:55] LABS: PHOSPHORUS 3.2 mg/dL (2.5-4.9)
[2021-12-29 16:00] VITALS: BP 107/80
[2021-12-29 20:00] VITALS: BP 136/81
[2021-12-29] MEDS: DEXAMETHASONE 10 MG/ML VIAL IV SCH (21:00)
[2021-12-29] MEDS: GUAIFENESIN 600MG ER TABLET PO SCH (21:00)
[2021-12-29] MEDS: FAT EMULSIONS 500 ML IV SCH (21:33)
[2021-12-29] MEDS: TOTAL PARENTERAL NUTRITION 2,000 ML IV SCH (21:34)
[2021-12-30] VITALS: BP 136/81
[2021-12-30] MEDS: METOPROLOL TARTRATE 5MG/5ML VIAL IV SCH ×5 (00:37→23:45)
[2021-12-30 04:00] VITALS: BP 144/84
[2021-12-30] MEDS: ACETAMINOPHEN 650MG SUPP PR PRN ×2 (04:57→12:38)
[2021-12-30] MEDS: PIPERACILLIN/TAZOBACTAM 3.375 G in DEXTROSE 5% WATER 50 ML IV SCH (05:39)
[2021-12-30 06:25] LABS: HEMATOCRIT. 30.6 % (42.0-52.0); HEMOGLOBIN. 9.9 g/dL (14.0-18.0); MEAN CORPUSCULAR HEMOGLOBIN 26.3 pg (28.0-32.0); MEAN PLATELET VOLUME 9.5 fl (7.4-10.4); PLATELET 377 x1000/uL (130-400); RED BLOOD CELL COUNT 3.78 mill/uL (4.7-6.1)
[2021-12-30 08:00] VITALS: BP 119/81
[2021-12-30] MEDS: MAGNESIUM OXIDE 400MG TABLET PO SCH (09:00)
[2021-12-30] MEDS: GUAIFENESIN 600MG ER TABLET PO SCH ×2 (09:00→20:46)
[2021-12-30] MEDS: FAMOTIDINE 20MG/2ML VIAL IV SCH ×2 (09:00→20:47)
[2021-12-30] MEDS: ENOXAPARIN 40MG/0.4ML SYR SUBCUT SCH (09:00)
[2021-12-30] MEDS: BLOOD SUGAR DIAGNOSTIC STRIP TEST SCH ×2 (09:00→17:00)
[2021-12-30 12:00] VITALS: BP 103/79
[2021-12-30 13:45] LABS: PLATELET ESTIMATE NORMAL
[2021-12-30] MEDS: MEROPENEM 1,000 MG in SODIUM CHLORIDE 0.9% 100 ML IV SCH ×2 (14:08→20:46)
[2021-12-30] MEDS: MORPHINE SULFATE 2 MG/ML CPJ (NOT FOR IM USE) IV PRN ×3 (14:09→23:45)
[2021-12-30 16:00] VITALS: BP 109/82
[2021-12-30 20:00] VITALS: BP 107/72
[2021-12-30] MEDS: DEXAMETHASONE 10 MG/ML VIAL IV SCH (20:44)
[2021-12-30] MEDS: ATORVASTATIN CALCIUM 20MG TABLET PO SCH (20:44)
[2021-12-30] MEDS: TOTAL PARENTERAL NUTRITION 2,000 ML IV SCH (20:45)
[2021-12-30] MEDS: MIRTAZAPINE 15MG TABLET PO SCH (20:46)
[2021-12-31] VITALS: BP 106/79
[2021-12-31 04:00] VITALS: BP 111/80
[2021-12-31] MEDS: MEROPENEM 1,000 MG in SODIUM CHLORIDE 0.9% 100 ML IV SCH ×3 (04:12→20:47)
[2021-12-31] MEDS: METOPROLOL TARTRATE 5MG/5ML VIAL IV SCH ×4 (05:46→23:58)
[2021-12-31 06:23] LABS: HEMATOCRIT. 29.4 % (42.0-52.0); HEMOGLOBIN. 7.8 g/dL (14.0-18.0); MEAN CORPUSCULAR HEMOGLOBIN 26.5 pg (28.0-32.0); MEAN CORPUSCULAR VOLUME 100.5 fL (80.0-94.0); MEAN PLATELET VOLUME 9.6 fl (7.4-10.4); PLATELET 296 x1000/uL (130-400); RED BLOOD CELL COUNT 2.92 mill/uL (4.7-6.1); RED CELL DISTRIBUTION WIDTH 20.4 % (11.6-14.6)
[2021-12-31 08:00] VITALS: BP 105/71
[2021-12-31] MEDS: ENOXAPARIN 30MG/0.3ML SYR SUBCUT SCH (09:00)
[2021-12-31] MEDS: FAMOTIDINE 20MG/2ML VIAL IV SCH ×2 (09:00→20:20)
[2021-12-31] MEDS: BLOOD SUGAR DIAGNOSTIC STRIP TEST SCH ×2 (09:00→17:00)
[2021-12-31] MEDS: MAGNESIUM OXIDE 400MG TABLET PO SCH (09:00)
[2021-12-31] MEDS: GUAIFENESIN 600MG ER TABLET PO SCH (09:00)
[2021-12-31 09:32] LABS: PLATELET ESTIMATE NORMAL
[2021-12-31 12:00] VITALS: BP 114/81
[2021-12-31] MEDS ORDERED: MORPHINE SULFATE 2 MG/ML CPJ (NOT FOR IM USE) IV PRN (12:45)
[2021-12-31] MEDS ORDERED: LORAZEPAM 2MG/ML CPJ IV PRN (14:00)
[2021-12-31 16:00] VITALS: BP 110/79
[2021-12-31 20:00] VITALS: BP 107/79
[2021-12-31] MEDS: FAT EMULSIONS 500 ML IV SCH (20:18)
[2021-12-31] MEDS: DEXAMETHASONE 10 MG/ML VIAL IV SCH (20:20)
[2021-12-31] MEDS: ATORVASTATIN CALCIUM 20MG TABLET PO SCH (20:21)
[2021-12-31] MEDS: MIRTAZAPINE 15MG TABLET PO SCH (20:21)
[2021-12-31] MEDS: TOTAL PARENTERAL NUTRITION 2,000 ML IV SCH (20:48)
[2021-12-31] MEDS ORDERED: TOTAL PARENTERAL NUTRITION 2,000 ML IV SCH (21:00)
[2022-01-01] VITALS: BP 107/71
[2022-01-01 04:00] VITALS: BP 122/82
[2022-01-01] MEDS: MEROPENEM 1,000 MG in SODIUM CHLORIDE 0.9% 100 ML IV SCH ×2 (05:21→14:08)
[2022-01-01] MEDS: METOPROLOL TARTRATE 5MG/5ML VIAL IV SCH (05:21)
[2022-01-01 06:24] LABS: HEMATOCRIT. 25.3 % (42.0-52.0); HEMOGLOBIN. 8.2 g/dL (14.0-18.0); MEAN CORPUSCULAR HEMOGLOBIN 26.6 pg (28.0-32.0); MEAN CORPUSCULAR VOLUME 81.9 fL (80.0-94.0); MEAN PLATELET VOLUME 9.6 fl (7.4-10.4); PLATELET 322 x1000/uL (130-400); RED BLOOD CELL COUNT 3.09 mill/uL (4.7-6.1); RED CELL DISTRIBUTION WIDTH 17.9 % (11.6-14.6)
[2022-01-01 08:18] VITALS: BP 106/72
[2022-01-01] MEDS: MAGNESIUM OXIDE 400MG TABLET PO SCH (08:50)
[2022-01-01] MEDS: FAMOTIDINE 20MG/2ML VIAL IV SCH (08:50)
[2022-01-01] MEDS: ENOXAPARIN 30MG/0.3ML SYR SUBCUT SCH (08:51)
[2022-01-01 09:09] LABS: PLATELET ESTIMATE NORMAL
[2022-01-01] MEDS: BLOOD SUGAR DIAGNOSTIC STRIP TEST SCH (09:16)
[2022-01-01 12:00] VITALS: BP 127/88
[2022-01-01 13:45] VITALS: BP 127/88
== END 2022-01-01 15:30 | disposition hospice, inpatient (51) | DRG 91 ==
LOC: ER 21:43 → MICUSO 12-10 02:01 → EDBEDREQ 12-10 07:42 → 5EST 12-10 15:18 → 7WST 12-16 23:27 → 7EST 01-01 12:38
PROVIDERS: ADMIT Specialist; ATTEND Family Medicine Adult Medicine
PROC: 02HV33Z Insertion of Infusion Device into Superior Vena Cava, Percutaneous Approach (ICD-10-PCS; principal; 2021-12-10)
PROC: B548ZZA Ultrasonography of Superior Vena Cava, Guidance (ICD-10-PCS; 2021-12-10)
PROC: 4A00X4Z Measurement of Central Nervous Electrical Activity, External Approach (ICD-10-PCS; 2021-12-11)
DX: G92.8 Other toxic encephalopathy (principal); E43 Unspecified severe protein-calorie malnutrition; U07.1 COVID-19; R57.1 Hypovolemic shock; J12.82 Pneumonia due to coronavirus disease 2019; J96.00 Acute respiratory failure, unspecified whether with hypoxia or hypercapnia; K56.609 Unspecified intestinal obstruction, unspecified as to partial versus complete obstruction; C78.7 Secondary malignant neoplasm of liver and intrahepatic bile duct; J91.8 Pleural effusion in other conditions classified elsewhere; N39.0 Urinary tract infection, site not specified; K92.1 Melena; R18.8 Other ascites; N17.9 Acute kidney failure, unspecified; F48.8 Other specified nonpsychotic mental disorders; E87.6 Hypokalemia; D63.0 Anemia in neoplastic disease; E83.42 Hypomagnesemia; G90.8 Other disorders of autonomic nervous system; D50.9 Iron deficiency anemia, unspecified; R74.01 Elevation of levels of liver transaminase levels; E78.5 Hyperlipidemia, unspecified; E86.0 Dehydration; E16.2 Hypoglycemia, unspecified; E83.51 Hypocalcemia; E83.39 Other disorders of phosphorus metabolism; Z66 Do not resuscitate; E87.70 Fluid overload, unspecified; I10 Essential (primary) hypertension; Z28.310 Unvaccinated for COVID-19; Z91.19 Patient's noncompliance with other medical treatment and regimen; Z68.26 Body mass index [BMI] 26.0-26.9, adult
CPT/HCPCS: 36415; 36573; 70553; 71045; 71250; 74178; 76700; 80048; 80053; 80061; 80076; 80305; 80320; 81003; 82010; 82105; 82140; 82378; 82533; 82550; 82607; 82728; 82746; 82947; 82962; 82977; 83036; 83519; 83525; 83540; 83550; 83605; 83735; 83880; 84100; 84134; 84145; 84206; 84439; 84443; 84478; 84484; 84681; 85018; 85025; 85044; 85651; 86301; 86337; 86705; 86709; 86803; 87340; 87426; 93005; 93306; 93970; 97162; 97166; 97535; 99285; A9577; C1725; C9113; J0696; J1100; J1610; J1650; J1940; J2185; J2270; J2405; J2543; J3475; J3480; J3490; J7030; J7040; J7050; J7060; Q9967; U0003; U0005; G0480